=== PATIENT | male | born 1955 | race Caucasian/White ===

== ENCOUNTER → 2016-07-11 | Outpatient (CLI) | payer BC, OTHER ==
--- NOTE | 2016-07-11 08:43 | DI ---
PA /LATERAL CHEST X-RAY, 07/11/2016 7:54 AM : Clinical History: Cough. Previous Exam: 12/03/2014. On both views the patient took a very shallow inspiration. There is no acute soft tissue or bony abno rmality. Heart size is normal. Lungs are clear. Mediastinal structures are normal. There are no pulmo nary nodules. Reading: Normal chest x-ray for this inspiratory effort. There has been no change.
== END ==
LOC: MOB RAD 07:56
PROVIDERS: ATTEND Physician Assistant
DX: R05 Cough (principal)
CPT/HCPCS: 71020